=== PATIENT | female | born 1995 | race Caucasian/White ===

== ENCOUNTER 2022-01-20 21:43 | Outpatient (REF) | payer BC, SELFPAY ==
[2022-01-20 22:27] LABS: TSH (W/Ref FT4) 1.09 uIU/mL (0.36-3.74)
== END 2022-01-20 21:44 | disposition home or self-care (01) ==
LOC: NCHCN 21:43
PROVIDERS: Visit Provider Family Medicine
DX: E66.3 Overweight (principal); Z68.33 Body mass index [BMI] 33.0-33.9, adult
CPT/HCPCS: 84443

== ENCOUNTER 2022-08-14 19:04 | Outpatient (REF) | payer BC, SELFPAY ==
[2022-08-14 20:47] LABS: Abs Immature Grans 0.02 10^3/uL (0.0-0.06); Absolute Basophil Count 0.05 10^3/uL (0.0-0.2); Absolute Eosinophil Count 0.16 10^3/uL (0.0-0.7); Absolute Lymphocyte Count 2.99 10^3/uL (1.2-3.4); Absolute Monocyte Count 0.68 10^3/uL (0.1-0.8); Basophils % 0.6; Eosinophils % 1.8; HCT 41.8 % (36.0-46.0); HGB 13.6 g/dL (11.2-15.7); Immature Grans % 0.2; Lymphocytes % 33.2; MCH 29.2 pg (27.0-33.0); MCHC 32.5 % (32.0-36.0); MCV 90 fL (80-95); MPV 10.6 fL (8.0-11.0); Monocytes % 7.6; Neutrophils % 56.6; Platelet Count 278 10^3/uL (130-400); RBC 4.65 10^6/uL (3.93-5.22); RDW 13.3 % (11.7-14.6); RDW-SD 43.7 fL
[2022-08-14 21:05] LABS: ALT 30 U/L (14-59); AST 21 U/L (15-37); Albumin 3.9 g/dL (3.4-5.0); Alkaline Phosphatase 67 U/L (46-116); Anion Gap 5.3 mmol/L (3-11); BUN 12 mg/dL (7-18); Bilirubin, Total 0.2 mg/dL (0.2-1.0); CO2 31.7 mmol/L (21.0-32.0); CREATININE 0.7 mg/dL (0.55-1.02); Calcium 9.3 mg/dL (8.5-10.1); Chloride 106 mmol/L (98-107); Estimated GFR 123.78 (mL/min/1.73m2); Glucose 91 mg/dL (74-106); Potassium 4.1 mmol/L (3.5-5.1); Sodium 143 mmol/L (136-145); TSH (W/Ref FT4) 1.48 uIU/mL (0.36-3.74); Total Protein 7.4 g/dL (6.4-8.2)
== END 2022-08-14 19:05 | disposition home or self-care (01) ==
LOC: LBN 19:04
PROVIDERS: Visit Provider Nurse Practitioner Family
DX: R00.2 Palpitations (principal)
CPT/HCPCS: 80053; 84443; 85025

== ENCOUNTER 2022-08-18 08:58 | Outpatient (RCR) | payer BC, SELFPAY ==
--- NOTE | 2022-08-18 09:00 | HOLTER_ITS ---
APPROVED REPORT Conclusion This is a 48-hour Holter monitor ordered for palpitations Rhythm throughout was sinus with an average heart rate of 83. Minimum was 61, maximum 157 A total of 38 isolated PVCs occurred There was 1 premature atrial contraction There was no atrial fibrillation no high-grade AV block, no pauses greater than 3 seconds
== END 2022-08-18 23:59 | disposition home or self-care (01) ==
LOC: CARDOPNVT 08:58
PROVIDERS: Visit Provider Nurse Practitioner Family
DX: R00.2 Palpitations (principal); I49.1 Atrial premature depolarization
CPT/HCPCS: 93225

== ENCOUNTER 2022-08-24 07:00 | Outpatient (RCR) | payer BC, SELFPAY | END 2022-08-24 07:20 | LOC: CARDOPNVT 07:00 | PROVIDERS: Visit Provider Nurse Practitioner Family | DX: R00.2 Palpitations (principal); I49.3 Ventricular premature depolarization | CPT/HCPCS: 93226 ==

== ENCOUNTER 2023-02-13 14:52 | Outpatient (REF) | payer BC, SELFPAY ==
--- NOTE | 2023-02-13 08:30 | PAPFT_PTH ---
PATIENT: Ruth Buchanan LOC: [facility]#:[id number] AGE/SX: 27/F ROOM: RE02/13/[address]: ALE: 1995 BED: DIS: 02/13/2023 SPEC #: [id number] RECD: 02/13/23 18:27 STATUS: JUNG SOLER #: [id number] BRINDA: 02/13/23 08:[address]: Mary Andrews DEPT: [facility] Cytology RECD BY: Katarzyna Hoyos Tissues: 1 - CX/ENDOCX FOR PAP SMEARS Procedures: PAP THIN PREP/[facility] Screening Comments: [id number] (CHLAMYDIA/GC)
[2023-02-13 17:56] LABS: Hemoglobin A1C 5.5 % (<5.7)
[2023-02-13 18:02] LABS: ALT 24 U/L (14-59); AST 25 U/L (15-37); Albumin 3.7 g/dL (3.4-5.0); Alkaline Phosphatase 62 U/L (46-116); Anion Gap 6.3 mmol/L (3-11); BUN 13 mg/dL (7-18); Bilirubin, Total 0.2 mg/dL (0.2-1.0); CO2 27.7 mmol/L (21.0-32.0); CREATININE 0.7 mg/dL (0.55-1.02); Calcium 9.8 mg/dL (8.5-10.1); Calculated LDL 105 mg/dL (<100); Chloride 103 mmol/L (98-107); Cholesterol 172 mg/dL (<200); Estimated GFR 123.01 (mL/min/1.73m2); Glucose 81 mg/dL (74-106); HDL Cholesterol 52 mg/dL (40-60); Potassium 4.2 mmol/L (3.5-5.1); Sodium 137 mmol/L (136-145); TSH 1.43 uIU/mL (0.36-3.74); Total Protein 7.9 g/dL (6.4-8.2); Triglyceride 76 mg/dL (<150)
[2023-02-14 14:54] LABS: Chlamydia Result Negative (Negative); GC Result Negative (Negative)
[2023-02-14 18:40] LABS: Prolactin 10.5 ng/mL (See Note)
[2023-02-22 13:49] LABS: Testosterone, Free 0.68 ng/dL (<0.13-1.06); Testosterone, Total 31 ng/dL (8-60)
== END 2023-02-13 14:53 | disposition home or self-care (01) ==
LOC: NCHCN 14:52
PROVIDERS: Visit Provider Family Medicine
DX: Z00.00 Encounter for general adult medical examination without abnormal findings (principal); D50.9 Iron deficiency anemia, unspecified; Z13.220 Encounter for screening for lipoid disorders; Z13.1 Encounter for screening for diabetes mellitus; Z13.29 Encounter for screening for other suspected endocrine disorder; E66.8 Other obesity; Z68.33 Body mass index [BMI] 33.0-33.9, adult; G43.909 Migraine, unspecified, not intractable, without status migrainosus; Z12.4 Encounter for screening for malignant neoplasm of cervix
CPT/HCPCS: 80053; 80061; 84402; 84403; 87491; 87591; 88142; 83036; 84146; 84443; 87480; 87510; 87660

== ENCOUNTER 2024-03-27 08:56 | Outpatient (REF) | payer MEDICAID, SELFPAY ==
[2024-03-27 15:35] LABS: HCT 42.4 % (36.0-46.0); MCV 91 fL (80-95); MPV 11.1 fL (8.0-11.0); Platelet Count 272 10^3/uL (130-400); RBC 4.67 10^6/uL (3.93-5.22); RDW 13.2 % (11.7-14.6); RDW-SD 43.8 fL; WBC 6.37 10^3/uL (4.4-10.8)
[2024-03-27 16:26] LABS: Folate 13.2 ng/mL (8.6-20.0); Vitamin B12 284 pg/mL (193-986); Vitamin D 25 Total 28.8 ng/mL (30-100)
== END 2024-03-27 08:57 | disposition home or self-care (01) ==
LOC: NCHCN 08:56
PROVIDERS: PCP Family Medicine; Visit Provider Family Medicine
DX: R58 Hemorrhage, not elsewhere classified (principal)
CPT/HCPCS: 82306; 85027; 82607; 82746; 83735